=== PATIENT | male | born 1950 | race Caucasian/White ===

== ENCOUNTER 2019-05-23 13:13 | Inpatient (IN) | payer MEDICARE, MEDICAID ==
[~2019-05-23] VITALS: Ht 185.4 cm; Wt 86.4 kg
[~2019-05-23 13:13] MED LIST: ALLOPURINOL PO; FURO-150 PO; MILK200C4 PO; SPIR1TAB4 PO
--- NOTE | 2019-05-23 14:18 | NUR ---
pt out to xray
--- NOTE | 2019-05-23 14:30 | NUR ---
pt returns from xray
[2019-05-23 14:31] LABS: BASOPHILS # (AUTO) 0.1 X10'3 (0-0.2); BASOPHILS % (AUTO) 0.5 % (0-1); EOSINOPHILS # (AUTO) 0.2 X10'3 (0-0.9); EOSINOPHILS % (AUTO) 1.2 % (0-6); HEMATOCRIT 42.5 % (42.0-52.0); HEMOGLOBIN 14.5 g/dl (14.0-17.9); LYMPHOCYTES # (AUTO) 0.8 X10'3 (1.1-4.8); LYMPHOCYTES % (AUTO) 5.6 % (21-51); MEAN CORPUSCULAR HGB CONC 34.2 g/dL (33.0-36.5); MEAN CORPUSCULAR VOLUME 108.2 FL (78-98); MONOCYTES # (AUTO) 1.2 X10'3 (0-0.9); MONOCYTES % (AUTO) 8.1 % (2-12); NEUTROPHILS # (AUTO) 12.2 X10'3 (1.8-7.7); NEUTROPHILS % (AUTO) 84.6 % (42-75); PLATELET COUNT 132 X10'3 (140-440); RED BLOOD COUNT 3.92 X10'6 (4.70-6.10); RED CELL DISTRIBUTION WIDTH 15.6 % (11.5-14.5); WHITE BLOOD COUNT 14.4 X10'3 (4.5-11.0)
[2019-05-23 14:40] LABS: ALANINE AMINOTRANSFERASE 42 U/L (12-78); ALBUMIN 2.4 G/DL (3.4-5.0); ALBUMIN/GLOBULIN RATIO 0.6 (1.1-1.5); ALKALINE PHOSPHATASE 102 IU/L (46-116); ANION GAP 6 (8-16); ASPARTATE AMINO TRANSFERASE 40 U/L (10-37); BILIRUBIN,TOTAL 1.2 MG/DL (0.1-1.0); BLOOD UREA NITROGEN 12 MG/DL (7-18); BUN/CREATININE RATIO 12.4 (5.4-32.0); CALCIUM 8.1 MG/DL (8.5-10.1); CHLORIDE 104 MMOL/L (99-107); CREATININE 0.97 MG/DL (0.60-1.10); GLUCOSE 104 MG/DL (70-104); POTASSIUM 3.3 MMOL/L (3.5-5.1); SODIUM 137 MMOL/L (135-145); TOTAL CARBON DIOXIDE 27.1 MMOL/L (24-32); TOTAL PROTEIN 6.2 G/DL (6.4-8.2); eGFR 77 ML/MIN
[2019-05-23 14:46] LABS: CLARITY,URINE CLEAR (Clear); COLOR,URINE YELLOW (Yellow); GLUCOSE, URINE NEGATIVE (Neg); KETONES,URINE NEGATIVE (Neg); LEUKOCYTE ESTERASE ,URINE NEGATIVE (Neg); NITRITES, URINE NEGATIVE (Neg); OCCULT BLOOD,URINE NEGATIVE (Neg); PROTEIN,URINE NEGATIVE (Neg); UROBILINOGEN,URINE 0.2 E.U/dL (0.2-1.0)
--- NOTE | 2019-05-23 14:49 | NUR ---
provider confirmed with pt that he is not allergic to iodine.
[2019-05-23 14:50] LABS: UA COLLECTION TYPE CLN CATCH MIDSTREAM
[2019-05-23] MEDS ORDERED: iohexol 350MG/ML 100ml bottle IV ONE (14:54)
[2019-05-23 15:22] LABS: LIPASE 291 U/L (73-393)
[2019-05-23] MEDS ORDERED: levoFLOXACIN-Levaquin 750MG/D5 150 ML IV STA (16:25)
[2019-05-23] MEDS ORDERED: magnesium 2GM in 50ml NS 50 ML IV PRN (16:45)
[2019-05-23] MEDS ORDERED: diphenhydrAMINE 25mg capsule PO PRN (16:45)
[2019-05-23] MEDS ORDERED: mag hydrox/Alum hydrox/simeth 30ml oral suspension PO PRN ×2 (16:45→23:30)
[2019-05-23] MEDS ORDERED: potassium CL 10mEq/100ml bag 100 ML IV PRN ×2 (16:45)
[2019-05-23] MEDS: K and/or MAG REPLACEMENT MC SCH (16:45)
[2019-05-23] MEDS ORDERED: HYDROcodone/acetaminophen 10/325mg tab PO PRN (16:45)
[2019-05-23] MEDS ORDERED: potassium Cl 20 mEq SR tablet PO PRN (16:45)
[2019-05-23] MEDS ORDERED: morphine 2 MG/ML inj. syringe IV PRN ×2 (16:45)
[2019-05-23] MEDS ORDERED: metoclopramide 5 mg/ml inj IV PRN (16:45)
[2019-05-23] MEDS ORDERED: acetaminophen 650mg rectal suppository RC PRN (16:45)
[2019-05-23] MEDS ORDERED: ondansetron/PF 4mg/2ml inj IV PRN (16:45)
[2019-05-23] MEDS ORDERED: bisacodyl 10mg suppository rectal RC PRN (16:45)
[2019-05-23] MEDS ORDERED: HYDROcodone/acetaminophen 5mg/325mg tablet PO PRN (16:45)
[2019-05-23] MEDS ORDERED: magnesium 4gm in 100ml NS 100 ML IV PRN (16:45)
[2019-05-23] MEDS ORDERED: magnesium Cl slow-release 64mg tablet PO PRN (16:45)
[2019-05-23] MEDS ORDERED: magnesium hydroxide 30ml (MOM) UD suspension PO PRN (16:45)
[2019-05-23] MEDS ORDERED: acetaminophen 325mg tablet PO PRN ×2 (16:45)
[2019-05-23] MEDS ORDERED: diphenhydrAMINE 50 mg/ml inj IV PRN (16:45)
[2019-05-23] MEDS: furosemide 40mg/4ml inj IV ONE ×2 (16:48→17:02)
[2019-05-23] MEDS ORDERED: ALLO300T8 PO (17:00)
--- NOTE | 2019-05-23 17:03 | NUR ---
INFORMED DR. DIAMOND OF PTS URINE OUTPUT 1800CC SINCE ADMISSION. PT HAD TAKEN 40MG OF LASIX F
--- NOTE | 2019-05-23 17:04 | NUR ---
PT HAD TAKEN LASIX PRIOR TO ARRIVING TO ER. DR. DIAMOND CANCELLED LASIX 40MG IV
[2019-05-23 18:00] VITALS: BP 137/91
[2019-05-23] MEDS: normal saline 1000ml 1,000 ML IV SCH ×2 (18:00→20:37)
--- NOTE | 2019-05-23 18:40 | NUR ---
Patient in room ED 14. I have received report from Rashad and had the opportunity to ask questions and assume patient care.
[2019-05-23] MEDS ORDERED: metroNIDAZOLE-Flagyl 500mg/NS 100 ML IV SCH (20:00)
[2019-05-23] MEDS: furosemide 10 MG/1 ML 10ml inj IV SCH (20:19)
[2019-05-23] MEDS: docusate sod 100mg capsule PO SCH (20:19)
[2019-05-23] MEDS: potassium Cl 20 mEq SR tablet PO PRN (20:20)
[2019-05-23] MEDS: temazepam 15mg capsule PO PRN (23:25)
[2019-05-23] MEDS ORDERED: haloperidol 5mg tablet PO PRN (23:30)
[2019-05-23] MEDS ORDERED: LORazepam 2 mg/ml vial IV PRN (23:30)
[2019-05-23] MEDS ORDERED: methylPREDNISolone sod succ 125mg/2ml vial IV ONE (23:30)
[2019-05-23] MEDS ORDERED: haloperidol lactate 5mg/ml inj IM PRN (23:30)
[2019-05-23] MEDS ORDERED: ipratropium/albuterol 3ml nebule NEB PRN (23:30)
[2019-05-23] MEDS ORDERED: cyclobenzaprine 10mg tablet PO PRN (23:30)
[2019-05-23] MEDS ORDERED: thiamine inj. 100 MG in normal saline 100ml IV soln 100 ML IV ONE (23:30)
[2019-05-23] MEDS ORDERED: loperamide 2mg capsule PO PRN (23:30)
[2019-05-23] MEDS ORDERED: dicyclomine 10 MG capsule PO PRN (23:30)
[2019-05-24] VITALS: BP 120/75
[2019-05-24] MEDS ORDERED: metroNIDAZOLE-Flagyl 500mg/NS 100 ML IV SCH
[2019-05-24 00:34] LABS: ETHANOL < 0.010 GM/DL (0.0-0.010)
[2019-05-24] MEDS: lactulose 20gm/30ml cup PO SCH ×4 (01:27→20:00)
[2019-05-24] MEDS: propranolol 10mg tablet PO SCH ×4 (01:28→20:30)
[2019-05-24] MEDS: ipratropium/albuterol 3ml nebule NEB SCH ×4 (02:23→19:58)
[2019-05-24] MEDS: potassium Cl 20 mEq SR tablet PO PRN (02:37)
[2019-05-24] MEDS: metroNIDAZOLE-Flagyl 500mg/NS 100 ML IV SCH ×3 (04:03→20:06)
--- NOTE | 2019-05-24 05:20 | NUR ---
Pt. slept well until approximately after this hour when pt. c/ nausea with no vomiting. Medicated with zofran ivp effec No withdraw episode noted this shift. Addendum: 05/24/19 at 0742 by Lexi Parker RN Amended: Links added.
[2019-05-24 05:44] LABS: BASOPHILS % (AUTO) 0.1 % (0-1); EOSINOPHILS % (AUTO) 0.2 % (0-6); HEMATOCRIT 41.5 % (42.0-52.0); HEMOGLOBIN 14.3 g/dl (14.0-17.9); LYMPHOCYTES # (AUTO) 0.3 X10'3 (1.1-4.8); LYMPHOCYTES % (AUTO) 2.6 % (21-51); MEAN CORPUSCULAR HEMOGLOBIN 37.5 PG (27.0-31.0); MEAN CORPUSCULAR HGB CONC 34.5 g/dL (33.0-36.5); MEAN CORPUSCULAR VOLUME 108.7 FL (78-98); MONOCYTES # (AUTO) 0.2 X10'3 (0-0.9); MONOCYTES % (AUTO) 1.5 % (2-12); NEUTROPHILS # (AUTO) 12.5 X10'3 (1.8-7.7); NEUTROPHILS % (AUTO) 95.6 % (42-75); PLATELET COUNT 129 X10'3 (140-440); RED BLOOD COUNT 3.82 X10'6 (4.70-6.10); WHITE BLOOD COUNT 13.1 X10'3 (4.5-11.0)
--- NOTE | 2019-05-24 06:00 | NUR ---
Problems reprioritized. Patient report given, questions answered & plan of care reviewed with Paris HELLER. Addendum: 05/24/19 at 0732 by Lexi Parker RN Amended: Links added.
[2019-05-24 06:04] LABS: ALANINE AMINOTRANSFERASE 36 U/L (12-78); ALBUMIN 2.4 G/DL (3.4-5.0); ALBUMIN/GLOBULIN RATIO 0.6 (1.1-1.5); ALKALINE PHOSPHATASE 97 IU/L (46-116); AMYLASE 84 U/L (25-115); ANION GAP 5 (8-16); ASPARTATE AMINO TRANSFERASE 37 U/L (10-37); BILIRUBIN,TOTAL 1.4 MG/DL (0.1-1.0); BLOOD UREA NITROGEN 12 MG/DL (7-18); BUN/CREATININE RATIO 11.7 (5.4-32.0); CALCIUM 7.9 MG/DL (8.5-10.1); CHLORIDE 102 MMOL/L (99-107); CHOL/HDL RATIO 1.7 (0.00-4.99); CHOLESTEROL 130 MG/DL (0-200); CREATININE 1.03 MG/DL (0.60-1.10); GLUCOSE 139 MG/DL (70-104); HDL CHOLESTEROL 76 MG/DL (35-60); LDL CHOLESTEROL 54 MG/DL (50-100); LIPASE 193 U/L (73-393); MAGNESIUM 1.5 MG/DL (1.5-2.4); PHOSPHORUS 2.7 MG/DL (2.3-4.5); POTASSIUM 4.1 MMOL/L (3.5-5.1); SODIUM 136 MMOL/L (135-145); TOTAL CARBON DIOXIDE 29.4 MMOL/L (24-32); TOTAL PROTEIN 6.1 G/DL (6.4-8.2); TRIGLYCERIDES 44 MG/DL (20-135); eGFR 72 ML/MIN
[2019-05-24] MEDS: K and/or MAG REPLACEMENT MC SCH (07:14)
[2019-05-24] MEDS: multivitamins, therapeutics tablet PO SCH (07:33)
[2019-05-24] MEDS: folic acid 1mg tablet PO SCH (07:34)
[2019-05-24] MEDS: thiamine 100mg tablet PO SCH (07:34)
[2019-05-24] MEDS: docusate sod 100mg capsule PO SCH ×2 (07:34→20:00)
[2019-05-24] MEDS: HYDROchlorothiazide 25mg tablet PO SCH (07:35)
[2019-05-24] MEDS: allopurinol 300 MG tablet PO SCH (07:35)
[2019-05-24] MEDS: spironolactone 25 MG tablet PO SCH (07:36)
[2019-05-24] MEDS: methylPREDNISolone sod succ 125mg/2ml vial IV SCH ×4 (07:37→23:51)
[2019-05-24] MEDS: furosemide 10 MG/1 ML 10ml inj IV SCH ×2 (07:38→20:06)
[2019-05-24] MEDS: levoFLOXACIN-Levaquin 750MG/D5 150 ML IV SCH (07:39)
[2019-05-24] MEDS ORDERED: [UNRECOGNIZED DRUG - OTHER] PO SCH (08:00)
[2019-05-24 09:41] VITALS: BP 113/76
[2019-05-24 10:32] LABS: URINE AMPHETAMINE SCREEN NEGATIVE (Neg); URINE BARBITUATE SCREEN NEGATIVE (Neg); URINE BENZODIAZEPINES SCREEN NEGATIVE (Neg); URINE CANNABINOID SCREEN NEGATIVE (Neg); URINE COCAINE SCREEN NEGATIVE (Neg); URINE METHADONE SCREEN NEGATIVE (Neg); URINE OPIATE SCREEN NEGATIVE (Neg); URINE PHENCYCLIDINE SCREEN NEGATIVE (Neg)
[2019-05-24 10:50] VITALS: BP 101/62
[2019-05-24 11:00] VITALS: BP 134/82
[2019-05-24 11:10] VITALS: BP 130/85
[2019-05-24 11:33] LABS: PLEURAL FLUID PH 7.507 (7.63-7.65)
[2019-05-24 11:34] LABS: BFSOURCE RIGHT PLEURAL FLD
[2019-05-24 12:26] LABS: GLUCOSE,BODY FLUID 187 MG/DL; LDH,BODY FLUID 144 U/L
[2019-05-24 12:51] LABS: TOTAL PROTEIN,BODY FLUID < 2.0 G/DL
[2019-05-24 13:25] LABS: LYMPHOCYTES,BODY FLUID 20 %; MONOCYTES,BODY FLUID 69 %; NEUTROPHILS,BODY FLUID 11 %
[2019-05-24 14:33] LABS: BF RBC COUNT 54500 /CU MM; BF WBC COUNT 187.5 /CU MM (0-1000); BFAPPEAR BLOODY; BFCOLOR RED; BFVOLUME 59 ML
--- NOTE | 2019-05-24 18:19 | NUR ---
Problems reprioritized. Patient report given, questions answered & plan of care reviewed with Malik Lucio.
[2019-05-24 18:30] VITALS: BP 97/60
[2019-05-24] MEDS: heparin, porcine 5000 units/ml vial SQ SCH (20:08)
[2019-05-24] MEDS: temazepam 15mg capsule PO PRN (21:05)
[2019-05-25] VITALS: BP 101/70
[2019-05-25] MEDS: lactulose 20gm/30ml cup PO SCH ×3 (02:00→13:04)
[2019-05-25] MEDS: ipratropium/albuterol 3ml nebule NEB SCH ×3 (02:53→15:01)
[2019-05-25] MEDS: metroNIDAZOLE-Flagyl 500mg/NS 100 ML IV SCH ×2 (03:56→12:00)
[2019-05-25] MEDS: methylPREDNISolone sod succ 125mg/2ml vial IV SCH ×2 (05:31→12:00)
[2019-05-25 05:32] LABS: BASOPHILS % (AUTO) 0.1 % (0-1); EOSINOPHILS % (AUTO) 0 % (0-6); HEMATOCRIT 39.2 % (42.0-52.0); HEMOGLOBIN 13.7 g/dl (14.0-17.9); LYMPHOCYTES # (AUTO) 0.6 X10'3 (1.1-4.8); LYMPHOCYTES % (AUTO) 3.1 % (21-51); MEAN CORPUSCULAR HEMOGLOBIN 37.6 PG (27.0-31.0); MEAN CORPUSCULAR VOLUME 107.5 FL (78-98); MEAN PLATELET VOLUME 8.1 FL (7.4-10.4); MONOCYTES # (AUTO) 0.4 X10'3 (0-0.9); MONOCYTES % (AUTO) 2.3 % (2-12); NEUTROPHILS # (AUTO) 17.4 X10'3 (1.8-7.7); NEUTROPHILS % (AUTO) 94.5 % (42-75); PLATELET COUNT 175 X10'3 (140-440); RED BLOOD COUNT 3.65 X10'6 (4.70-6.10); RED CELL DISTRIBUTION WIDTH 15.1 % (11.5-14.5); WHITE BLOOD COUNT 18.4 X10'3 (4.5-11.0)
[2019-05-25 05:46] LABS: ALANINE AMINOTRANSFERASE 34 U/L (12-78); ALBUMIN 2.3 G/DL (3.4-5.0); ALBUMIN/GLOBULIN RATIO 0.7 (1.1-1.5); ALKALINE PHOSPHATASE 89 IU/L (46-116); AMYLASE 76 U/L (25-115); ANION GAP 8 (8-16); ASPARTATE AMINO TRANSFERASE 29 U/L (10-37); BILIRUBIN,TOTAL 1.2 MG/DL (0.1-1.0); BLOOD UREA NITROGEN 24 MG/DL (7-18); BUN/CREATININE RATIO 23.8 (5.4-32.0); CHLORIDE 98 MMOL/L (99-107); CREATININE 1.01 MG/DL (0.60-1.10); GLUCOSE 160 MG/DL (70-104); LIPASE 129 U/L (73-393); MAGNESIUM 1.6 MG/DL (1.5-2.4); PHOSPHORUS 3.8 MG/DL (2.3-4.5); POTASSIUM 3.7 MMOL/L (3.5-5.1); SODIUM 136 MMOL/L (135-145); TOTAL CARBON DIOXIDE 30.3 MMOL/L (24-32); TOTAL PROTEIN 5.6 G/DL (6.4-8.2); eGFR 73 ML/MIN
--- NOTE | 2019-05-25 06:30 | NUR ---
Patient in room [facility]. I have received report from Malik HELLER and had the opportunity to ask questions and assume patient care.
--- NOTE | 2019-05-25 06:30 | NUR ---
Problems reprioritized. Patient report given, questions answered & plan of care reviewed with ANA. Addendum: 05/25/19 at 0631 by Shyam Anders RN Amended: Links added.
--- NOTE | 2019-05-25 06:31 | NUR ---
Patient in room [facility]. I have received report from PINA Bernard and had the opportunity to ask questions and assume patient care.
[2019-05-25] MEDS: K and/or MAG REPLACEMENT MC SCH (07:46)
[2019-05-25 07:49] VITALS: BP 110/78
[2019-05-25] MEDS: docusate sod 100mg capsule PO SCH (08:00)
[2019-05-25] MEDS: levoFLOXACIN-Levaquin 750MG/D5 150 ML IV SCH (08:00)
[2019-05-25] MEDS: furosemide 10 MG/1 ML 10ml inj IV SCH (08:00)
[2019-05-25] MEDS: multivitamins, therapeutics tablet PO SCH (08:06)
[2019-05-25] MEDS: folic acid 1mg tablet PO SCH (08:06)
[2019-05-25] MEDS: spironolactone 25 MG tablet PO SCH (08:07)
[2019-05-25] MEDS: propranolol 10mg tablet PO SCH ×2 (08:07→13:12)
[2019-05-25] MEDS: HYDROchlorothiazide 25mg tablet PO SCH (08:07)
[2019-05-25] MEDS: heparin, porcine 5000 units/ml vial SQ SCH (08:07)
[2019-05-25] MEDS: thiamine 100mg tablet PO SCH (08:07)
[2019-05-25] MEDS: allopurinol 300 MG tablet PO SCH (08:07)
--- NOTE | 2019-05-25 10:23 | NUR ---
Student Medication Administration: For this medication-pass time frame, all medication were reviewed, dispensed, administered and documented per hospital policy by Hunter director nursing service.
--- NOTE | 2019-05-25 11:21 | NUR ---
Student documentation: I have reviewed and agree with all interventions, assessments performed and documented by Hunter, vice president of nursing.
[2019-05-25 11:51] VITALS: BP 131/76
--- NOTE | 2019-05-25 12:08 | NUR ---
Problems reprioritized. Patient report given, questions answered & plan of care reviewed with
--- NOTE | 2019-05-25 12:56 | NUR ---
Dr. White at bedside. Pt and MD discussed pt going home instead of rehab, walked 600ft with little assistance. Pt stated he would like to go home instead. Informed Dr. White IV just went bad and did not receive afternoon dose of flagyl and SM. MD stated okay and will be discharging home on PO meds.
[2019-05-25 14:48] LABS: BASOPHILS # (AUTO) 0.2 X10'3 (0-0.2); BASOPHILS % (AUTO) 0.6 % (0-1); EOSINOPHILS % (AUTO) 0 % (0-6); HEMATOCRIT 44.2 % (42.0-52.0); HEMOGLOBIN 15.1 g/dl (14.0-17.9); LYMPHOCYTES # (AUTO) 0.5 X10'3 (1.1-4.8); LYMPHOCYTES % (AUTO) 2.1 % (21-51); MEAN CORPUSCULAR HEMOGLOBIN 36.6 PG (27.0-31.0); MEAN CORPUSCULAR HGB CONC 34.2 g/dL (33.0-36.5); MEAN PLATELET VOLUME 7.9 FL (7.4-10.4); MONOCYTES # (AUTO) 0.8 X10'3 (0-0.9); MONOCYTES % (AUTO) 3.4 % (2-12); NEUTROPHILS # (AUTO) 23.6 X10'3 (1.8-7.7); NEUTROPHILS % (AUTO) 93.9 % (42-75); PLATELET COUNT 297 X10'3 (140-440); RED BLOOD COUNT 4.13 X10'6 (4.70-6.10); RED CELL DISTRIBUTION WIDTH 15.2 % (11.5-14.5)
[2019-05-25 14:57] LABS: WHITE BLOOD COUNT 25.1 X10'3 (4.5-11.0)
[2019-05-25 15:36] LABS: TOTAL CELLS COUNTED 100
[2019-05-25 15:37] LABS: PLATELET ESTIMATE NORMAL
--- NOTE | 2019-05-25 16:01 | NUR ---
Dr. White explained to pt that he could discharge home instead of rehab since he has been walking well and feels better. Dr. White ordered CBC on pt and WBC came back at 25.1. Informed Dr. White and stated hes cancelling the discharge. Informed patient that Dr. White cancelled discharge and wants him to stay one more night with IV antibiotics. Pt refusing and stated he still wants to go home. Dr. White informed and stated pt is to sign AMA form if he leaves. Explained to pt the risks of leaving and pt still wants to leave. AMA form signed.
--- NOTE | 2019-05-25 16:07 | NUR ---
Dr. White paged regarding pt leaving AMA.
--- NOTE | 2019-05-25 16:43 | NUR ---
reviewed nursing education consultant charting
[2019-05-25] MEDS ORDERED: LORazepam 1 MG tablet PO PRN (23:30)
[2019-05-25] MEDS ORDERED: LORazepam 2 mg/ml vial IV PRN (23:30)
[2019-05-27] MEDS ORDERED: LORazepam 1 MG tablet PO PRN (23:30)
[2019-05-27] MEDS ORDERED: LORazepam 2 mg/ml vial IV PRN (23:30)
[2019-05-30] MEDS ORDERED: PANT40TA4 PO (18:57)
[2019-05-30] MEDS ORDERED: FLUT1BLS4 (18:57)
[2019-06-02] MEDS ORDERED: CEPH250T PO (09:34)
== END 2019-05-25 16:08 | disposition left against medical advice (07) | DRG 871 ==
LOC: ER 13:14 → ED HOLD 16:44 → SUR 3N 19:13
PROVIDERS: ADMIT Family Medicine; ATTEND Family Medicine
PROC: BW211ZZ Computerized Tomography (CT Scan) of Abdomen and Pelvis using Low Osmolar Contrast (ICD-10-PCS; principal; 2019-05-23)
PROC: 0W993ZZ Drainage of Right Pleural Cavity, Percutaneous Approach (ICD-10-PCS; 2019-05-24)
DX: A41.9 Sepsis, unspecified organism (principal); J96.90 Respiratory failure, unspecified, unspecified whether with hypoxia or hypercapnia; K76.6 Portal hypertension; K80.10 Calculus of gallbladder with chronic cholecystitis without obstruction; J91.8 Pleural effusion in other conditions classified elsewhere; E87.6 Hypokalemia; I50.9 Heart failure, unspecified; J43.9 Emphysema, unspecified; Z53.29 Procedure and treatment not carried out because of patient's decision for other reasons; Z60.2 Problems related to living alone; K70.31 Alcoholic cirrhosis of liver with ascites; Z66 Do not resuscitate; Z96.643 Presence of artificial hip joint, bilateral; Z96.611 Presence of right artificial shoulder joint; F10.20 Alcohol dependence, uncomplicated; F12.90 Cannabis use, unspecified, uncomplicated; G89.29 Other chronic pain; Z81.8 Family history of other mental and behavioral disorders; Z82.49 Family history of ischemic heart disease and other diseases of the circulatory system; Z82.5 Family history of asthma and other chronic lower respiratory diseases; Z87.891 Personal history of nicotine dependence; Z93.3 Colostomy status; Z88.5 Allergy status to narcotic agent; Z99.81 Dependence on supplemental oxygen
CPT/HCPCS: 32555; 36415; 71045; 71046; 74177; 80053; 80061; 80305; 80320; 81003; 82150; 82945; 83036; 83605; 83615; 83690; 83735; 83880; 83986; 84100; 84145; 84157; 84443; 85025; 85610; 87040; 87070; 87081; 88108; 88305; 89051; 93005; 93306; 94640; 94760; 97110; 97116; 97161; 97530; 99285; G0378; J1644; J1940; J1956; J2405; J2930; J3411; J3490; J7030; Q9967

== ENCOUNTER 2019-10-01 12:54 | Emergency (ER) | payer MEDICARE, MEDICAID ==
[~2019-10-01] VITALS: Ht 185.4 cm; Wt 86.0 kg
[~2019-10-01 12:54] MED LIST changes: +ALLO300T8 PO; -ALLOPURINOL PO; +CEPH250T PO; +FLUT1BLS4; -MILK200C4 PO; +PANT40TA4 PO
[2019-10-01] MEDS ORDERED: TETanus/Pertussis (Acell)/Diphther VAC/PF (Tdap-Adult) 0.5ml syringe IMVAC ONE (15:10)
[2019-10-01] MEDS ORDERED: LIDOcaine/epinephrine/tetracaine TOPICAL sol 3 ML syringe TOP ONE (15:10)
[2019-10-01] MEDS ORDERED: LIDOcaine 1% W/epiNEPHrine 1:200,000 10ml vial IJ ONE (15:10)
[2019-10-01] MEDS ORDERED: morphine 4 MG/ML inj SYRINge IM ONE ×2 (15:25→17:10)
[2019-10-01 16:20] VITALS: BP 139/79
[2019-10-01] MEDS ORDERED: CEPH500C5 PO (18:35)
== END 2019-10-01 18:52 | disposition home or self-care (01) ==
LOC: ER 12:54
DX: S51.012A Laceration without foreign body of left elbow, initial encounter (principal); S20.212A Contusion of left front wall of thorax, initial encounter; S50.851A Superficial foreign body of right forearm, initial encounter; J43.9 Emphysema, unspecified; G89.29 Other chronic pain; F12.90 Cannabis use, unspecified, uncomplicated; Z98.890 Other specified postprocedural states; Z88.5 Allergy status to narcotic agent; Z79.2 Long term (current) use of antibiotics; Z79.899 Other long term (current) drug therapy; W18.39XA Other fall on same level, initial encounter; Y93.89 Activity, other specified; Y92.009 Unspecified place in unspecified non-institutional (private) residence as the place of occurrence of the external cause; Y99.8 Other external cause status
CPT/HCPCS: 71045; 73080; 90471; 90715; 93005; 96372; 99284; J2270

== ENCOUNTER 2019-10-27 15:32 | Emergency (ER) | payer MEDICARE, MEDICAID ==
[~2019-10-27] VITALS: Ht 182.9 cm; Wt 84.0 kg
[2019-10-27] MEDS ORDERED: normal saline 1000ML IV soln IVB ONE (16:10)
[2019-10-27 16:55] LABS: BASOPHILS % (AUTO) 0.4 % (0-1); EOSINOPHILS % (AUTO) 0.1 % (0-6); HEMATOCRIT 44.8 % (42.0-52.0); HEMOGLOBIN 14.9 g/dl (14.0-17.9); LYMPHOCYTES # (AUTO) 0.3 X10'3 (1.1-4.8); LYMPHOCYTES % (AUTO) 3.1 % (21-51); MEAN CORPUSCULAR HEMOGLOBIN 35.2 PG (27.0-31.0); MEAN CORPUSCULAR HGB CONC 33.3 g/dL (33.0-36.5); MEAN CORPUSCULAR VOLUME 105.7 FL (78-98); MEAN PLATELET VOLUME 8.2 FL (7.4-10.4); MONOCYTES # (AUTO) 0.3 X10'3 (0-0.9); MONOCYTES % (AUTO) 3.3 % (2-12); NEUTROPHILS # (AUTO) 8.3 X10'3 (1.8-7.7); NEUTROPHILS % (AUTO) 93.1 % (42-75); PLATELET COUNT 89 X10'3 (140-440); RED BLOOD COUNT 4.24 X10'6 (4.70-6.10); RED CELL DISTRIBUTION WIDTH 14.7 % (11.5-14.5); WHITE BLOOD COUNT 8.9 X10'3 (4.5-11.0)
[2019-10-27] MEDS ORDERED: fentaNYL/PF 50MCG/1 ML 2ML syringe IV ONE (16:55)
[2019-10-27] MEDS ORDERED: propofol 1000mg/100ml bottle 100 ML IV PRN (17:00)
[2019-10-27 17:02] LABS: ALANINE AMINOTRANSFERASE 36 U/L (12-78); ALBUMIN 3.2 G/DL (3.4-5.0); ALKALINE PHOSPHATASE 121 IU/L (46-116); ANION GAP 8 (8-16); ASPARTATE AMINO TRANSFERASE 36 U/L (10-37); BILIRUBIN,TOTAL 1.3 MG/DL (0.1-1.0); BLOOD UREA NITROGEN 17 MG/DL (7-18); BUN/CREATININE RATIO 19.5 (5.4-32.0); CALCIUM 8.5 MG/DL (8.5-10.1); CHLORIDE 105 MMOL/L (99-107); CREATININE 0.87 MG/DL (0.60-1.10); ETHANOL < 0.010 GM/DL (0.0-0.010); GLUCOSE 130 MG/DL (70-104); POTASSIUM 3.9 MMOL/L (3.5-5.1); SODIUM 141 MMOL/L (135-145); TOTAL CARBON DIOXIDE 27.6 MMOL/L (24-32); TOTAL PROTEIN 6.4 G/DL (6.4-8.2); eGFR 87 ML/MIN
[2019-10-27] MEDS ORDERED: propofol 10mg/ml 20ml vial IV ONE (17:05)
[2019-10-27 17:40] LABS: ANISOCYTOSIS FEW; PLATELET ESTIMATE DECREASED; TOTAL CELLS COUNTED 100
--- NOTE | 2019-10-27 17:49 | NUR ---
Propofol [address] Paredes for moderate sedation.
--- NOTE | 2019-10-27 17:52 | NUR ---
Propofol [address] Paredes.
[2019-10-27 18:58] VITALS: BP 113/88
[2019-11-06] MEDS ORDERED: ALBU2.5V10 NEB (19:12)
[2019-11-06] MEDS ORDERED: ATR0.5NEB NEB (19:12)
[2019-11-06] MEDS ORDERED: LORA-268 PO (19:12)
[2019-11-06] MEDS ORDERED: SILV25CR21 TOP (19:12)
[2019-11-06] MEDS ORDERED: FURO40TA4 PO (19:12)
[2019-11-06] MEDS ORDERED: SPIR50TA5 PO (19:12)
[2019-11-06] MEDS ORDERED: PRED10TA PO (19:12)
[2019-11-07] MEDS ORDERED: ALLO100T PO (08:49)
== END 2019-10-27 20:07 | disposition home or self-care (01) ==
LOC: ER 15:32
DX: S73.004A Unspecified dislocation of right hip, initial encounter (principal); J43.9 Emphysema, unspecified; G89.29 Other chronic pain; F12.90 Cannabis use, unspecified, uncomplicated; Z98.890 Other specified postprocedural states; Z72.89 Other problems related to lifestyle; Z88.5 Allergy status to narcotic agent; Z79.2 Long term (current) use of antibiotics; Z79.899 Other long term (current) drug therapy; X58.XXXA Exposure to other specified factors, initial encounter; Y93.89 Activity, other specified; Y92.89 Other specified places as the place of occurrence of the external cause; Y99.8 Other external cause status
CPT/HCPCS: 27250; 36415; 72170; 73502; 80053; 80320; 85025; 96374; 99285; J3010; J7030; 99152

== ENCOUNTER 2019-12-06 12:09 | Emergency (ER) | payer MEDICARE, MEDICAID ==
[~2019-12-06] VITALS: Ht 185.4 cm; Wt 90.9 kg
[~2019-12-06 12:09] MED LIST changes: +ALBU2.5V10 NEB; +ALLO100T PO; -ALLO300T8 PO; +ATR0.5NEB NEB; -CEPH250T PO; -FLUT1BLS4; -FURO-150 PO; +FURO40TA4 PO; +LORA-268 PO; -PANT40TA4 PO; +PRED10TA PO; +SILV25CR21 TOP; -SPIR1TAB4 PO; +SPIR50TA5 PO
--- NOTE | 2019-12-06 12:18 | NUR ---
Patient 88% on room air, placed on 2L NC.
[2019-12-06] MEDS ORDERED: fentaNYL/PF 50MCG/1 ML 2ML syringe IV ONE (12:45)
[2019-12-06] MEDS ORDERED: diazepam inj 5 MG/ML inj. IV ONE (12:45)
[2019-12-06] MEDS ORDERED: ondansetron/PF 4mg/2ml inj IV ONE (12:45)
[2019-12-06] MEDS ORDERED: etomidate 2mg/ml inj. IV ONE (13:15)
--- NOTE | 2019-12-06 14:07 | NUR ---
River, patient's primary RN updated of patient's condition post moderate sedation and resumes carea of the patient.
[2019-12-06 15:14] VITALS: BP 132/79
== END 2019-12-06 15:16 | disposition home or self-care (01) ==
LOC: ER 12:09
DX: S73.004A Unspecified dislocation of right hip, initial encounter (principal); J44.9 Chronic obstructive pulmonary disease, unspecified; G89.29 Other chronic pain; F12.90 Cannabis use, unspecified, uncomplicated; Z98.890 Other specified postprocedural states; Z60.2 Problems related to living alone; Z88.5 Allergy status to narcotic agent; Z79.899 Other long term (current) drug therapy; X50.1XXA Overexertion from prolonged static or awkward postures, initial encounter; Y93.89 Activity, other specified; Y92.89 Other specified places as the place of occurrence of the external cause; Y99.8 Other external cause status
CPT/HCPCS: 27265; 72170; 73501; 96374; 96375; 99285; J2405; J3360; 94760

== ENCOUNTER 2020-01-08 13:59 | Emergency (ER) | payer MEDICARE, MEDICAID ==
[~2020-01-08] VITALS: Ht 185.4 cm; Wt 90.9 kg
[2020-01-08 14:44] VITALS: BP 141/117
[2020-01-08 14:45] LABS: BASOPHILS # (AUTO) 0.1 X10'3 (0-0.2); BASOPHILS % (AUTO) 0.6 % (0-1); EOSINOPHILS % (AUTO) 0.1 % (0-6); HEMATOCRIT 46.8 % (42.0-52.0); HEMOGLOBIN 15.7 g/dl (14.0-17.9); LYMPHOCYTES # (AUTO) 0.3 X10'3 (1.1-4.8); LYMPHOCYTES % (AUTO) 2.2 % (21-51); MEAN CORPUSCULAR HEMOGLOBIN 35.2 PG (27.0-31.0); MEAN CORPUSCULAR HGB CONC 33.6 g/dL (33.0-36.5); MEAN CORPUSCULAR VOLUME 104.9 FL (78-98); MEAN PLATELET VOLUME 8.2 FL (7.4-10.4); MONOCYTES # (AUTO) 0.4 X10'3 (0-0.9); MONOCYTES % (AUTO) 3.1 % (2-12); NEUTROPHILS # (AUTO) 11.1 X10'3 (1.8-7.7); PLATELET COUNT 118 X10'3 (140-440); RED BLOOD COUNT 4.46 X10'6 (4.70-6.10); RED CELL DISTRIBUTION WIDTH 14.8 % (11.5-14.5); WHITE BLOOD COUNT 11.8 X10'3 (4.5-11.0)
[2020-01-08 14:58] LABS: ALANINE AMINOTRANSFERASE 48 U/L (12-78); ALBUMIN 3.7 G/DL (3.4-5.0); ALBUMIN/GLOBULIN RATIO 0.9 (1.1-1.5); ALKALINE PHOSPHATASE 162 IU/L (46-116); ANION GAP 6 (8-16); ASPARTATE AMINO TRANSFERASE 40 U/L (10-37); BILIRUBIN,TOTAL 1.3 MG/DL (0.1-1.0); BLOOD UREA NITROGEN 28 MG/DL (7-18); BUN/CREATININE RATIO 27.7 (5.4-32.0); CALCIUM 9.2 MG/DL (8.5-10.1); CHLORIDE 104 MMOL/L (99-107); CREATININE 1.01 MG/DL (0.60-1.10); GLUCOSE 134 MG/DL (70-104); POTASSIUM 4.2 MMOL/L (3.5-5.1); SODIUM 141 MMOL/L (135-145); TOTAL CARBON DIOXIDE 30.6 MMOL/L (24-32); TOTAL PROTEIN 7.6 G/DL (6.4-8.2); eGFR 73 ML/MIN
[2020-01-08] MEDS ORDERED: PRED20TA PO (15:47)
== END 2020-01-08 16:32 | disposition home or self-care (01) ==
LOC: ER 14:00
DX: R06.02 Shortness of breath (principal); J43.9 Emphysema, unspecified; G89.29 Other chronic pain; F12.90 Cannabis use, unspecified, uncomplicated; Z98.890 Other specified postprocedural states; Z79.899 Other long term (current) drug therapy
CPT/HCPCS: 36415; 71045; 80053; 84484; 85025; 93005; 99285

== ENCOUNTER 2020-02-24 04:43 | Emergency (ER) | payer MEDICARE, MEDICAID ==
[~2020-02-24] VITALS: Ht 185.4 cm; Wt 88.6 kg
[2020-02-24] MEDS ORDERED: acetaminophen 325mg tablet PO ONE (05:25)
[2020-02-24] MEDS ORDERED: ketorolac tromethamine 15mg/ml inj. IM ONE (05:25)
[2020-02-24] MEDS ORDERED: METH-360 PO (05:29)
--- NOTE | 2020-02-24 06:24 | NUR ---
PT SEEN FOR BACK PAIN MEDICATED WITH TORADOL AND TYLENOL . PT EDUCATED ABOUT BACK PAIN RELIEF AND WHEN TO RETURN TO THE ER. FOLLOW UP WITH PRIMARY MD IN AM , PT VERBALIZED UNDERSTANDING . PT STATES HE WANTS TO GO HOME AND WILL BE ABLE TO GET HOME WITHOUIT HIS O2 . PT TAKEN OFF O2 TO SEE IF HE DESATS . PT SATURATION AFTER 20 MIN OF 02 IS 93% AND NO IMMEDAITATE ACUTE DISTRESS NOTED. PT VERBALIZED UNDERSTANDING AND HAS REQUESTED WE CALL HIS TRANPORTAION FROM [facility] , PT BACK ON O2 WHILE HE AWAITS FOR TRANSPORTATION.
[2020-02-24 06:34] VITALS: BP 117/68
--- NOTE | 2020-02-24 06:46 | NUR ---
Pt assisted into wheelchair and taken out to vehicle.
== END 2020-02-24 06:47 | disposition home or self-care (01) ==
LOC: ER 04:44
DX: M54.5 Low back pain (principal); G89.29 Other chronic pain; J44.9 Chronic obstructive pulmonary disease, unspecified; F12.90 Cannabis use, unspecified, uncomplicated; Z98.890 Other specified postprocedural states; Z79.899 Other long term (current) drug therapy
CPT/HCPCS: 96372; 99284; J1885

== ENCOUNTER 2020-05-07 19:34 | Emergency (ER) | payer MEDICARE, MEDICAID ==
[~2020-05-07] VITALS: Ht 185.4 cm; Wt 88.2 kg
[~2020-05-07 19:34] MED LIST changes: +METH-360 PO
[2020-05-07] MEDS ORDERED: diazepam 5mg tablet PO ONE (20:10)
[2020-05-07] MEDS ORDERED: oxyCODONE/APAP 10/325mg tablet PO ONE (20:10)
--- NOTE | 2020-05-07 21:02 | NUR ---
resting in bed, eyes closed, respirations even. in no apparent distress
[2020-05-07] MEDS ORDERED: METH-360 PO (22:00)
[2020-05-07 22:19] VITALS: BP 122/78
== END 2020-05-07 22:31 | disposition home or self-care (01) ==
LOC: ER 19:35
DX: M54.5 Low back pain (principal); G89.29 Other chronic pain; J44.9 Chronic obstructive pulmonary disease, unspecified; F12.90 Cannabis use, unspecified, uncomplicated; Z98.890 Other specified postprocedural states; Z72.89 Other problems related to lifestyle; Z79.899 Other long term (current) drug therapy
CPT/HCPCS: 99284